=== PATIENT | male | born 1995 | race African-American/Black ===

== ENCOUNTER 2019-10-25 18:20 | Emergency (ER) | payer BC ==
[~2019-10-25] VITALS: Ht 177.8 cm; Wt 88.0 kg
[~2019-10-25 18:20] MED LIST: DARVOCET-N 100100 MG OR; NAPROSYN500 MG PO; NO HOME MEDS; ZOFRAN ODT4 MG OR
[2019-10-25 21:40] VITALS: BP 133/85
== END 2019-10-25 21:47 | disposition home or self-care (01) | DRG 605 ==
LOC: ED 18:20
DX: S80.212A Abrasion, left knee, initial encounter (principal); V86.55XA Driver of 3- or 4- wheeled all-terrain vehicle (ATV) injured in nontraffic accident, initial encounter; Y93.I9 Activity, other involving external motion; Y92.410 Unspecified street and highway as the place of occurrence of the external cause